=== PATIENT | male | born 1980 | race Caucasian/White ===

== ENCOUNTER 2016-09-14 05:37 | Emergency (ER) | payer BC, MEDICAID ==
[2016-09-14] MEDS ORDERED: LORAZEPAM 0.5 MG TABLET PO ONE (05:53)
--- NOTE | 2016-09-14 05:58 | Emergency Department Record ---
Anxiety - General Chief Complaint: Anxiety Stated Complaint: ANXIETY Time Seen by Provider: 09/14/16 05:47 Source: Patient, EMS Mode of Arrival: EMS Limitations: No limitations - History of Present Illness Initial Comments: 36 yo male presents with anxiety from work. He states he has a history of panic attacks. He follows with his PCP and a therapist for these episodes. His last panic attack was about 2 months ago. He was at work today and felt nauseated. He went into the restroom and looked into the mirror and saw that his eyes were dilated. He states this made him immediately very panicky. He had heart racing, shortness of breath, sweating and nausea. These are very typical symptoms for him. He was given Valium by EMS and he feels like he is quickly improving. He states his biggest stress is money at this point in time. He states he is with two children and states home life is stable and good. PCP is Favio Thomas. He gets chest pain with these attacks. He had a stress test with Dr Padron 2-3 weeks ago. He had an Echo as well. MD Complaint: Anxiety Onset/Timin -: Hour(s) Symptoms: Chest pain, Dyspnea, Palpitations Place: Work Previous History of Same: Yes Severity: Severe Quality: Constant, Improving, Similar to prior episodes Provoking factors: None known Improves With: Medication Worsens With: Nothing Associated symptoms: Palpitations - Related Data Home Medications: Home Medications Medication Instructions Recorded Confirmed Last Taken Amlodipine Besylate/Benazepril 1 each PO DAILY 04/05/16 09/14/16 04/04/16 [Lotrel 5-20 mg Capsule] Escitalopram Oxalate [Lexapro] 30 mg PO DAILY 04/05/16 09/14/16 04/04/16 Allergies/Adverse Reactions: Allergies Allergy/AdvReac Type Severity Reaction Status Date / Time erythromycin base Allergy VOMITING Verified 04/05/16 00:16 Travel Screening - Travel/Exposure Within Last 30 Days Have you traveled within the last 30 days?: No Review of Systems Constitutional: Denies: Chills, Fever, Malaise, Night sweats, Weakness Eyes: Denies: Eye discharge ENT: Denies: Congestion, Epistaxis, Throat pain Respiratory: Reports: Dyspnea. Denies: Cough, Hemoptysis, Stridor, Wheezes Cardiovascular: Reports: Chest pain, Palpitations. Denies: Arrhythmia Endocrine: Denies: Fatigue, Polydipsia, Polyuria Gastrointestinal: Reports: Nausea, Vomiting. Denies: Abdominal pain, Diarrhea, Hematemesis, Hematochezia Genitourinary: Denies: Dysuria, Frequency, Hematuria Musculoskeletal: Denies: Arthralgia, Back pain, Joint swelling, Myalgia, Neck pain Skin: Denies: Bruising, Change in color, Rash Neurological: Denies: Confusion, Headache, Numbness, Weakness Psychiatric: Reports: Anxiety Hematological/Lymphatic: Denies: Blood Clots, Easy bleeding, Easy bruising, Swollen glands Past Medical History - SOCIAL HISTORY Smoking Status: Heavy tobacco smoker (>10/day) Alcohol Use: None Drug Use: None - RESPIRATORY Hx Respiratory Disorders: No - CARDIOVASCULAR Hx Cardio Disorders: Yes Hx Hypertension: Yes - NEURO Hx Neuro Disorders: No - GI Hx GI Disorders: No - Hx Genitourinary Disorders: No - ENDOCRINE Hx Endocrine Disorders: No - MUSCULOSKELETAL Hx Musculoskeletal Disorders: No - PSYCH Hx Anxiety: Yes Hx Depression: Yes Comment:: panic attacks - HEMATOLOGY/ONCOLOGY Hx Hematology/Oncology Disorders: No Family Medical History Any Significant Family History?: No Physical Exam - General General Appearance: Alert, Oriented x3, Cooperative, No acute distress, Anxious (mild to moderate) - Head Head exam: Atraumatic, Normocephalic, Normal inspection - Eye Eye exam: Normal appearance, PERRL. negative: Conjunctival injection, Periorbital swelling, Scleral icterus - ENT ENT exam: Normal exam, Mucous membranes moist Ear exam: Normal external inspection Nasal Exam: Normal inspection Mouth exam: Normal external inspection Teeth exam: Normal inspection Throat exam: Normal inspection - Neck Neck exam: Normal inspection, Full ROM. negative: Tenderness - Respiratory Respiratory exam: Normal lung sounds bilaterally. negative: Respiratory distress - Cardiovascular Cardiovascular Exam: Normal rhythm, Normal heart sounds, Tachycardia (105). negative: Diastolic murmur Peripheral Pulses: 2+: Radial (R), Radial (L) - GI/Abdominal GI/Abdominal exam: Soft - Rectal Rectal exam: Deferred - exam: Deferred - Extremities Extremities exam: Normal inspection, Full ROM, Normal capillary refill. negative: Pedal edema, Tenderness - Back Back exam: Reports: Normal inspection, Full ROM. Denies: CVA tenderness (R), CVA tenderness (L), Muscle spasm, Rash noted, Tenderness - Neurological Neurological exam: Alert, Oriented X3. negative: Altered, Motor sensory deficit - Psychiatric Psychiatric exam: Anxious - Skin Skin exam: Dry, Intact, Normal color, Warm. negative: Cyanosis, Diaphoretic, Erythema, Mottled Course Vital Signs 09/14/16 09/14/16 05:39 05:48 Temperature 98.7 F Pulse Rate 110 H Respiratory 18 Rate Blood Pressure 148/97 Pulse Ox 100 - Reevaluation(s) Reevaluation #1: EKG 05:47 Sinus tach at 102, normal intervals, normal axis, normal ST No ST changes from 04/05/16 The patient was seen in the ED for a panic attack at that time. 09/14/16 05:59 Reevaluation #2: No acute changes on the CBC or CMP The patient continues to do well. He is relaxing and feels much improved. He has been up to the restroom without any problems. 09/14/16 06:30 Reevaluation #3: The UA and UDS are negative The patient is very relaxed. No complaints. 09/14/16 06:45 Reevaluation #4: The results were discussed with the patient. He is feeling much better He was instructed not to drive after being given the medications He is to follow up with his therapist next available. 09/14/16 06:55 Medical Decision Making - Lab Data Result diagrams: 09/14/16 05:55 09/14/16 05:55 Disposition Disposition: Discharge Clinical Impression: Anxiety attack Disposition: Home, Self-Care Condition: (1) Good Instructions: Generalized Anxiety Disorder (ED) Additional Instructions: Call your doctor today as well as your therapist for close follow up Return or go to an ER if you have any return of symptoms that are not well controlled Forms: Patient Portal Access Time of Disposition: 06:58
[2016-09-14 06:03] LABS: BASO % 0.3 % (0-6); GRAN % 57.4 % (47-80); HEMATOCRIT 41.9 % (42.0-52.0); HEMOGLOBIN 14.9 gm/dl (14.0-18.0); LYMPH % 32.9 % (16-45); MEAN CELL VOLUME 84.1 fl (81-97); MEAN CORPUSCULAR HEMOGLOBIN 29.9 pg (27-33); MEAN CORPUSCULAR HGB CONC 35.6 g/dl (32-36); MEAN PLATELET VOLUME 9.9 fl (7.4-10.4); MONO % 7.4 % (0-9); PLATELET COUNT 314 K/uL (130-400); RED BLOOD COUNT 4.98 M/uL (4.40-5.70); RED CELL DISTRIBUTION WIDTH 12.6 % (11.5-14.5); WHITE BLOOD COUNT W/O DIFF 10.8 K/uL (4.2-12.2)
[2016-09-14 06:15] LABS: ALB/GLOB RATIO 1.4 (1.1-1.8); ALBUMIN 4.5 gm/dL (3.5-5.0); ALKALINE PHOSPHATASE 79 U/L (38-126); ALT/SGPT 42 U/L (21-72); ANION GAP 11.6 (7-16); AST/SGOT 26 U/L (17-59); BILIRUBIN,TOTAL 0.38 mg/dL (0.2-1.3); BLOOD UREA NITROGEN 17 mg/dL (9-20); CARBON DIOXIDE 23.4 mmol/L (22-30); CREATININE 0.9 mg/dL (0.66-1.25); EST GLOMERULAR FILTRATION RATE > 60 ml/min; GLUCOSE,RANDOM 135 mg/dL (70-110); TOTAL PROTEIN 7.8 gm/dL (6.3-8.2)
[2016-09-14 06:38] LABS: URINE APPEARANCE CLEAR; URINE BILIRUBIN NEGATIVE (NEGATIVE); URINE BLOOD MODERATE (NEGATIVE); URINE COLOR YELLOW; URINE GLUCOSE (UA) NEGATIVE (NEGATIVE); URINE KETONE NEGATIVE (NEGATIVE); URINE LEUKOCYTE ESTERASE NEGATIVE (NEGATIVE); URINE NITRITE NEGATIVE (NEGATIVE); URINE PROTEIN NEGATIVE (NEGATIVE); URINE UROBILINOGEN 0.2 E.U./dL (0.20 - 1.00)
[2016-09-14 06:42] LABS: AMPHETAMINE SCREEN URINE NOT DETECTED; BARBITURATE SCREEN URINE NOT DETECTED; BENZODIAZEPINE SCREEN URINE NOT DETECTED; COCAINE SCREEN URINE NOT DETECTED; METHADONE SCREEN URINE NOT DETECTED; METHAMPHETAMINE SCREEN NOT DETECTED; OPIATE SCREEN URINE NOT DETECTED; OXYCODONE SCREEN URINE NOT DETECTED; PHENCYCLIDINE SCREEN URINE NOT DETECTED; PROPOXYPHENE SCREEN URINE NOT DETECTED; THC SCREEN URINE NOT DETECTED; TRICYCLIC ANTIDEPRESSANT SCRN NOT DETECTED
[2016-09-14 06:46] LABS: URINE BACTERIA NONE SEEN; URINE EPITHELIAL CELLS NONE SEEN (FEW); URINE WBC NONE SEEN (0-2/hpf)
== END 2016-09-14 07:10 | disposition home or self-care (01) ==
LOC: ER 05:37
DX: F41.0 Panic disorder [episodic paroxysmal anxiety] (principal); R11.0 Nausea; R07.9 Chest pain, unspecified; R06.02 Shortness of breath; R00.0 Tachycardia, unspecified; I10 Essential (primary) hypertension; F17.210 Nicotine dependence, cigarettes, uncomplicated
CPT/HCPCS: 80053; 80305; 81001; 84443; 85025; 93005; 93010; 99284

== ENCOUNTER 2016-10-20 04:36 | Emergency (ER) | payer BC ==
--- NOTE | 2016-10-20 04:51 | Emergency Department Record ---
History of Present Illness - General Chief Complaint: Chest Pain Stated Complaint: CHEST PAIN Time Seen by Provider: 10/20/16 04:38 Source: Patient Mode of Arrival: Ambulatory Limitations: No limitations - History of Present Illness Initial Comments: 36 yo male presents with work with a feeling of palpitations, anxious, nausea, and chest/arm pain. He was at work watching videos on work place accidents. He states the videos were somewhat graphic. The symptoms started with heart racing and nausea then developed pain in the left upper chest to the left arm. He has a history of panic attacks with similar episodes in the past including about a month ago. Due to similar prior symptoms he did have a stress test and an ECHO that were normal in the last couple months. He is seeing a therapist. He is being treated with Vistaril. He states that does not stop the panic events very effectively. The patient's greatest stress is work and money. He has worked about 15 straight days including 12 hour days and overtime. He has a vacation in 2 weeks. PCP Tam Boswell MD Complaint: Chest pain, Other -: Hour(s) (Onset around 4 am) Onset: Other (At work) Pain Location: Left chest Pain Radiation: LUE Severity: Mild Quality: Sharp Consistency: Constant Improves With: Nothing Worsens With: Other (anxiety) Anginal Symptoms: Nausea, Vomiting - Related Data Home Medications Medication Instructions Recorded Confirmed Last Taken Amlodipine Besylate/Benazepril 1 each PO DAILY 04/05/16 10/20/16 10/19/16 [Lotrel 5-20 mg Capsule] Escitalopram Oxalate [Lexapro] 30 mg PO DAILY 04/05/16 10/20/16 10/19/16 Chlorthalidone [Chlorthalidone] 50 mg PO DAILY 10/20/16 10/20/16 10/19/16 Hydroxyzine Pamoate [Hydroxyzine 50 mg PO BID 10/20/16 10/20/16 10/19/16 Pamoate] Metoprolol Succinate [Metoprolol 25 mg PO DAILY 10/20/16 10/20/16 10/19/16 Succinate] Risperidone [Risperadol] 1 mg PO DAILY 10/20/16 10/20/16 10/19/16 Allergies Allergy/AdvReac Type Severity Reaction Status Date / Time erythromycin base Allergy VOMITING Verified 04/05/16 00:16 Review of Systems Constitutional: Denies: Chills, Fever, Weakness Eyes: Denies: Eye discharge, Eye pain, Photophobia ENT: Denies: Congestion, Throat pain Respiratory: Reports: Dyspnea. Denies: Cough Cardiovascular: Reports: Chest pain, Palpitations Endocrine: Denies: Fatigue, Polydipsia, Polyuria Gastrointestinal: Reports: Nausea. Denies: Abdominal pain, Diarrhea, Vomiting Genitourinary: Denies: Dysuria, Frequency, Hematuria Musculoskeletal: Denies: Arthralgia, Back pain, Joint swelling, Myalgia, Neck pain Skin: Denies: Bruising, Change in color, Rash Neurological: Denies: Headache, Numbness, Vertigo, Weakness Psychiatric: Reports: Anxiety. Denies: Suicidal thoughts Hematological/Lymphatic: Denies: Blood Clots, Easy bleeding, Easy bruising, Swollen glands Past Medical History - SOCIAL HISTORY Smoking Status: Heavy tobacco smoker (>10/day) Drug Use: None - RESPIRATORY Hx Respiratory Disorders: No - CARDIOVASCULAR Hx Cardio Disorders: Yes Hx Hypertension: Yes - NEURO Hx Neuro Disorders: No - GI Hx GI Disorders: No - Hx Genitourinary Disorders: No - ENDOCRINE Hx Endocrine Disorders: No - MUSCULOSKELETAL Hx Musculoskeletal Disorders: No - PSYCH Hx Anxiety: Yes Hx Depression: Yes Comment:: panic attacks - HEMATOLOGY/ONCOLOGY Hx Hematology/Oncology Disorders: No Physical Exam - General General Appearance: Alert, Oriented x3, Cooperative, No acute distress, Anxious (mild hyperventilaiton) Limitations: No limitations - Head Head exam: Atraumatic, Normocephalic, Normal inspection - Eye Eye exam: Normal appearance. negative: Conjunctival injection, Periorbital swelling - ENT ENT exam: Normal exam, Mucous membranes moist Ear exam: Normal external inspection Nasal Exam: Normal inspection Mouth exam: Normal external inspection - Neck Neck exam: Normal inspection, Full ROM. negative: Tenderness - Respiratory Respiratory exam: Normal lung sounds bilaterally. negative: Respiratory distress - Cardiovascular Cardiovascular Exam: Regular rate, Normal rhythm, Normal heart sounds Peripheral Pulses: 2+: Radial (R), Radial (L) - GI/Abdominal GI/Abdominal exam: Soft. negative: Tenderness - Rectal Rectal exam: Deferred - exam: Deferred - Extremities Extremities exam: Normal inspection, Full ROM, Normal capillary refill. negative: Pedal edema, Tenderness - Back Back exam: Reports: Normal inspection, Full ROM. Denies: Muscle spasm, Rash noted, Tenderness - Neurological Neurological exam: Alert, Normal gait, Oriented X3. negative: Altered - Psychiatric Psychiatric exam: Anxious - Skin Skin exam: Dry, Intact, Normal color, Warm Course - Reevaluation(s) Reevaluation #1: EKG 0437 NSR rate 103, intervals Qtc 471, axis normal, ST normal, No acute changes. 10/20/16 04:45 Reevaluation #2: EMR reviewed from prior visit in August No changes on today's EKG form the 09/14/16 visit 10/20/16 04:57 The labs were reviewed. Troponin is negative at 0.012 The patient feels much improved after the Valium HR now 89 10/20/16 05:31 Reevaluation #3: The patient states the anxious feeling returned. HR increased to 110. Sinus on the monitor. Valium was repeated. He feels like a wave of anxiety returned. Through conversation he was able to relax and slow his breathing and improve. 10/20/16 06:01 HR improved after Valium to 92. Much more relaxed. 10/20/16 06:19 Medical Decision Making - Lab Data Result diagrams: 10/20/16 04:55 10/20/16 04:55 Disposition Clinical Impression: Anxiety attack, Atypical chest pain Instructions: Panic Attack (ED) Forms: Patient Portal Access
[2016-10-20] MEDS ORDERED: DIAZEPAM 5 MG/1 ML TUBX IVP ONE ×2 (04:56→06:01)
[2016-10-20 05:02] LABS: BASO % 0.2 % (0-6); EOS % 2.2 % (0-6); HEMATOCRIT 41.6 % (42.0-52.0); HEMOGLOBIN 18.8 gm/dl (14.0-18.0); LYMPH % 34.6 % (16-45); MEAN CELL VOLUME 84.7 fl (81-97); MEAN CORPUSCULAR HGB CONC 45.2 g/dl (32-36); MEAN PLATELET VOLUME 9.6 fl (7.4-10.4); PLATELET COUNT 315 K/uL (130-400); RED BLOOD COUNT 4.91 M/uL (4.40-5.70); RED CELL DISTRIBUTION WIDTH 12.4 % (11.5-14.5); WHITE BLOOD COUNT W/O DIFF 11.8 K/uL (4.2-12.2)
[2016-10-20 05:03] LABS: MEAN CORPUSCULAR HEMOGLOBIN 38.2 pg (27-33)
[2016-10-20 05:13] LABS: ALB/GLOB RATIO 1.2 (1.1-1.8); ALBUMIN 4.9 gm/dL (3.5-5.0); ALKALINE PHOSPHATASE 82 U/L (38-126); ALT/SGPT 46 U/L (21-72); ANION GAP 9.9 (7-16); AST/SGOT 27 U/L (17-59); BILIRUBIN,TOTAL 0.48 mg/dL (0.2-1.3); BLOOD UREA NITROGEN 17 mg/dL (9-20); CARBON DIOXIDE 29.1 mmol/L (22-30); CREATININE 0.9 mg/dL (0.66-1.25); EST GLOMERULAR FILTRATION RATE > 60 ml/min; GLUCOSE,RANDOM 129 mg/dL (70-110); TOTAL PROTEIN 8.9 gm/dL (6.3-8.2)
[2016-10-20 05:25] LABS: TROPONIN I < 0.012 ng/mL (0.00-0.034)
--- NOTE | 2016-10-20 08:28 | Emergency Department Record ---
History of Present Illness - General Chief Complaint: Chest Pain Stated Complaint: CHEST PAIN Time Seen by Provider: 10/20/16 04:38 Source: Patient Mode of Arrival: Ambulatory Limitations: No limitations - History of Present Illness Initial Comments: took over from Dr. Smith at 7 am Patient resting comfortably. Patient states he had a panic attack and no chest pain at this time and no dyspnea. patient was watching work place injuries. Patient states he trying to drink more water. Onset/Timin -: Hour(s) (Onset around 4 am) Onset: Other (At work) Pain Location: Left chest Pain Radiation: LUE Severity: Mild Severity scale (1-10): 4 Quality: Sharp Consistency: Constant Improves With: Nothing Worsens With: Other (anxiety) Anginal Symptoms: Nausea, Vomiting Treatments Prior to Arrival: None - Related Data Home Medications Medication Instructions Recorded Confirmed Last Taken Amlodipine Besylate/Benazepril 1 each PO DAILY 04/05/16 10/20/16 10/19/16 [Lotrel 5-20 mg Capsule] Escitalopram Oxalate [Lexapro] 30 mg PO DAILY 04/05/16 10/20/16 10/19/16 Chlorthalidone [Chlorthalidone] 50 mg PO DAILY 10/20/16 10/20/16 10/19/16 Hydroxyzine Pamoate [Hydroxyzine 50 mg PO BID 10/20/16 10/20/16 10/19/16 Pamoate] Metoprolol Succinate [Metoprolol 25 mg PO DAILY 10/20/16 10/20/16 10/19/16 Succinate] Risperidone [Risperadol] 1 mg PO DAILY 10/20/16 10/20/16 10/19/16 Allergies Allergy/AdvReac Type Severity Reaction Status Date / Time erythromycin base Allergy VOMITING Verified 04/05/16 00:16 Travel Screening - Travel/Exposure Within Last 30 Days Have you traveled within the last 30 days?: No Review of Systems Constitutional: Denies: Chills, Fever, Weakness Eyes: Denies: Eye discharge, Eye pain, Photophobia ENT: Denies: Congestion, Throat pain Respiratory: Reports: Dyspnea. Denies: Cough Cardiovascular: Reports: Chest pain, Palpitations Endocrine: Denies: Fatigue, Polydipsia, Polyuria Gastrointestinal: Reports: Nausea. Denies: Abdominal pain, Diarrhea, Vomiting Genitourinary: Denies: Dysuria, Frequency, Hematuria Musculoskeletal: Denies: Arthralgia, Back pain, Joint swelling, Myalgia, Neck pain Skin: Denies: Bruising, Change in color, Rash Neurological: Denies: Headache, Numbness, Vertigo, Weakness Psychiatric: Reports: Anxiety. Denies: Suicidal thoughts Hematological/Lymphatic: Denies: Blood Clots, Easy bleeding, Easy bruising, Swollen glands Past Medical History - SOCIAL HISTORY Smoking Status: Heavy tobacco smoker (>10/day) Drug Use: None - RESPIRATORY Hx Respiratory Disorders: No - CARDIOVASCULAR Hx Cardio Disorders: Yes Hx Hypertension: Yes - NEURO Hx Neuro Disorders: No - GI Hx GI Disorders: No - Hx Genitourinary Disorders: No - ENDOCRINE Hx Endocrine Disorders: No - MUSCULOSKELETAL Hx Musculoskeletal Disorders: No - PSYCH Hx Anxiety: Yes Hx Depression: Yes Comment:: panic attacks - HEMATOLOGY/ONCOLOGY Hx Hematology/Oncology Disorders: No Family Medical History Any Significant Family History?: No Physical Exam - General General Appearance: Alert, Oriented x3, Cooperative, No acute distress Limitations: No limitations - Head Head exam: Normal inspection - Eye Eye exam: Normal appearance, PERRL Pupils: Normal accommodation - ENT ENT exam: Normal exam, Mucous membranes moist, Normal external ear exam, Normal orophraynx, TM's normal bilaterally Ear exam: Normal external inspection. negative: External canal tenderness Nasal Exam: Normal inspection. negative: Discharge, Sinus tenderness Mouth exam: Normal external inspection, Tongue normal Teeth exam: Normal inspection. negative: Dental caries Throat exam: Normal inspection. negative: Tonsillar erythema, Tonsillar exudate - Neck Neck exam: Normal inspection, Full ROM. negative: Tenderness - Respiratory Respiratory exam: Normal lung sounds bilaterally. negative: Respiratory distress - Cardiovascular Cardiovascular Exam: Regular rate, Normal rhythm, Normal heart sounds - GI/Abdominal GI/Abdominal exam: Soft, Normal bowel sounds. negative: Tenderness - Rectal Rectal exam: Deferred - exam: Deferred - Extremities Extremities exam: Normal inspection, Full ROM, Normal capillary refill. negative: Tenderness - Back Back exam: Reports: Normal inspection, Full ROM. Denies: Muscle spasm, Rash noted, Tenderness - Neurological Neurological exam: Alert, Normal gait, Oriented X3, Reflexes normal - Psychiatric Psychiatric exam: Normal affect, Normal mood - Skin Skin exam: Dry, Intact, Normal color, Warm Course Vital Signs 10/20/16 10/20/16 10/20/16 04:37 05:07 05:19 Temperature 98.7 F Pulse Rate 120 H Pulse Rate [ 84 85 Cissp ] Respiratory 26 H 24 18 Rate Blood Pressure 148/95 Blood Pressure 135/96 [Left Arm] Pulse Ox 99 100 95 10/20/16 10/20/16 10/20/16 05:41 06:10 06:25 Temperature Pulse Rate Pulse Rate [ 107 H 102 H 98 H Cissp ] Respiratory 18 16 16 Rate Blood Pressure Blood Pressure 147/95 147/96 [Left Arm] Pulse Ox 100 99 97 10/20/16 07:26 Temperature Pulse Rate Pulse Rate [ 90 Cissp ] Respiratory 16 Rate Blood Pressure Blood Pressure 145/87 [Left Arm] Pulse Ox 98 - Reevaluation(s) Reevaluation #1: patient is doing well and trop i neg 10/20/16 08:42 Medical Decision Making - Data Complexity MDM Data: Labs Ordered and/or Reviewed, EKG Ordered and/or Reviewed - Lab Data Result diagrams: 10/20/16 04:55 10/20/16 04:55 Lab Results 10/20/16 10/20/16 Range/Units 04:55 04:55 WBC 11.8 (4.2-12.2) K/uL RBC 4.91 (4.40-5.70) M/uL Hgb 18.8 H (14.0-18.0) gm/dl Hct 41.6 L (42.0-52.0) % MCV 84.7 (81-97) fl MCH 38.2 H (27-33) pg MCHC 45.2 H (32-36) g/dl RDW 12.4 (11.5-14.5) % Plt Count 315 (130-400) K/uL MPV 9.6 (7.4-10.4) fl Gran % 56.0 (47-80) % Lymphocytes % 34.6 (16-45) % Monocytes % 7.0 (0-9) % Eosinophils % 2.2 (0-6) % Basophils % 0.2 (0-6) % Sodium 138 (136-145) mmol/L Potassium 3.5 (3.5-5.1) mmol/L Chloride 99 (98-107) mmol/L Carbon Dioxide 29.1 (22-30) mmol/L Anion Gap 9.9 (7-16) BUN 17 (9-20) mg/dL Creatinine 0.9 (0.66-1.25) mg/dL Estimated GFR > 60 ml/min Random Glucose 129 H (70-110) mg/dL Calcium 9.6 (8.5-10.1) mg/dL Total Bilirubin 0.48 (0.2-1.3) mg/dL AST 27 (17-59) U/L ALT 46 (21-72) U/L Alkaline Phosphatase 82 (38-126) U/L Troponin I < 0.012 (0.00-0.034) ng/mL Total Protein 8.9 H (6.3-8.2) gm/dL Albumin 4.9 (3.5-5.0) gm/dL Globulin 4.0 (1.4-4.8) gm/dL Albumin/Globulin Ratio 1.2 (1.1-1.8) Disposition Clinical Impression: Anxiety attack, Atypical chest pain Disposition: Home, Self-Care Return To Work/School Note Provided: Yes Instructions: Panic Attack (ED) Additional Instructions: Follow up with therapist Dr. Triinty Jarvis in the next week. Forms: Patient Portal Access Time of Disposition: 08:41
== END 2016-10-20 09:12 | disposition home or self-care (01) ==
LOC: ER 04:36
DX: R07.89 Other chest pain (principal); F41.0 Panic disorder [episodic paroxysmal anxiety]; R06.00 Dyspnea, unspecified; R11.2 Nausea with vomiting, unspecified; F17.210 Nicotine dependence, cigarettes, uncomplicated
CPT/HCPCS: 80053; 84484; 85025; 93005; 93010; 96374; 96376; 99284; J3360